=== PATIENT | male | born 1975 | race Caucasian/White ===

== ENCOUNTER 2024-07-13 16:34 | Emergency (ER) | payer OTHER, SELFPAY ==
[2024-07-13 16:40] VITALS: BP 151/104; PULSE 84; RESP 16; TEMP 36.8; O2SAT 98
--- NOTE | 2024-07-13 18:01 | ED.EAR ---
HPI - Ear Problem General Chief complaint: Ear Stated complaint: ear pain Time Seen by Provider: 07/13/24 17:10 Source: patient, RN notes reviewed and old records reviewed Mode of arrival: ambulatory Limitations: no limitations History of Present Illness HPI Narrative: 49 year old male presents to [facility] care with complaints of left ear pain intermittently for the past 2 weeks with increased intensity since last night.Patient reports that it feel like he has fluid in his ear.He states that he has tried putting some peroxide in his ear. Patient denies any sinus congestion or drainage or any cough or sore throat reports no known fevers. MD Complaint: ear pain and other (feels like fluid in the left ear) Location: left ear Duration: intermittent (now constant since yesterday) Severity: severe Discharge from ear: Reports no Treatment prior to arrival: other (peroxide to ear) Related Data Allergies Allergy/AdvReac Type Severity Reaction Status Date / Time No Known Allergies Allergy Verified 07/13/24 16:43 Review of Systems Review of Systems: CONSTITUTIONAL: Denies malaise, chills, sweats, or fever. EYES: Denies visual changes, redness, or discharge. ENT: Reports rhinorrhea, congestion, sinus pain,left otalgia and no sore throat. CARDIOVASCULAR: Denies chest pain, palpitations, or edema. RESPIRATORY: Reports no cough.? Denies dyspnea. GASTROINTESTINAL: Denies abdominal pain, nausea, vomiting, diarrhea SKIN: Denies rash or itching. MUSCULOSKELETAL: Denies myalgia. NEUROLOGIC: Denies headache. All systems reviewed & are unremarkable except as noted in HPI and below PMFSH Past Medical History Medical History (Updated 07/15/24 @ 14:21 by Kenia Gerard NP) No pertinent past medical history Surgical History Surgical History (Updated 07/15/24 @ 14:22 by Kenia Gerard NP) No pertinent past surgical history Social History Social History (Updated 07/15/24 @ 14:21 by Kenia Gerard NP) Smoking status: Unknown if ever smoked Alcohol intake: current Alcohol use details: social Substance use type: does not use Comments At time of signature, agree with nursing past medical, surgical, social and family history. There is no relevant family history pertinent to the presenting complaint Exam Narrative: GENERAL: Well-appearing, well-nourished, and in no acute distress. HEAD: Normocephalic EYES: PERRLA, conjunctivae clear ENT: Nares clear, turbinates edematous and erythematous, clear discharge. Mucous membranes moist.Left TM red and bulging,canal is red irritated and with some noted swelling no drainage noted. Right TM pearly bedolla with dull light reflex; left tragal tenderness. Oropharynx erythematous without lesions. Tonsils not enlarged and without exudate, no drooling, no hoarseness, no trismus, uvula midline. NECK: Supple. No lymphadenopathy CHEST: Clear to auscultation, breath sounds equal. No wheezing, rhonchi, rales, or stridor. No respiratory distress, speaks in full sentences.no cough SAO2 98% on room air HEART: Regular rate and rhythm. No murmur heard. SKIN: Warm, dry, no rash. NEURO: Alert and oriented x3. PSYCH: Normal mood and affect Course Course Emergency Course: Patient is aware of diagnosis, understands and agrees to treatment plan.? Anticipatory guidance given.? Patient agrees to follow-up as directed and is aware of reasons to seek care at the emergency department. Portions of this record may have been created with voice recognition software Level of Care: Express Care Visit Vital Signs Vital signs: Vital Signs Temperature 36.8 C 07/13/24 16:40 Pulse Rate 84 07/13/24 16:40 Respiratory Rate 16 07/13/24 16:40 Blood Pressure 151/104 H 07/13/24 16:40 Pulse Oximetry 98 07/13/24 16:40 Oxygen Delivery Room Air 07/13/24 16:40 Temperature 36.8 C 07/13/24 16:40 Pulse Rate 84 07/13/24 16:40 Respiratory Rate 16
== END 2024-07-13 18:12 | disposition home or self-care (01) ==
PROVIDERS: Emergency Provider Registered Nurse; PCP Internal Medicine Geriatric Medicine
DX: H66.92 Otitis media, unspecified, left ear (principal); H60.92 Unspecified otitis externa, left ear
CPT/HCPCS: 99203; G0463

== ENCOUNTER 2025-06-24 08:57 | Emergency (ER) | payer OTHER, SELFPAY ==
--- OUTSIDE RECORDS SUMMARY | 2025-06-24 09:00 | XMS_ITS | Clinical Summary ---
Author Organization [facility] Address On license of [facility] [place] [address] Care Team Providers Care Set Illustrator Name Role Phone Unavailable Primary Care Provider Unavailabl e Social History Tobacco Use Types Packs/Day Years Used Date Smoking Tobacco: Never Assessed Sex and Gender Information Value Date Recorded Sex Assigned at Not on file Legal Sex Male 8:33 PM CDT Gender Identity Not on file Sexual Orientation Not on file Plan of Treatment Health Maintenance Due Date Last Done Comments Colorectal Cancer Screening Colonoscopy (10 Years) 1974 Annual Physical 1977 Hepatitis C 1992 Hepatitis B Vaccines (1 of 3 - 19+ 3-dose series) 1993 Pneumococcal Vaccine: 50+ Years (1 of 1 - PCV) 2024 Zoster Vaccines (1 of 2) 2024 COVID-19 Vaccine (2 - 2023-2 5 season) 2024 02/05/2021 DTaP, Tdap and Td Vaccines ( 3 - Td or Tdap) 09/26/2030 09/26/2020, 2010 Meningococcal B Vaccine Aged Out No l onger eligible based on patient's age to complete this topic Meningococcal Vaccine Aged Out No torsten sheela eligible based on patient's age to complete this topic RSV Immunizations Under 20 Months Aged Out No longer eligible b ased on patient's age to complete this topic
--- OUTSIDE RECORDS SUMMARY | 2025-06-24 09:00 | XMS_ITS | Clinical Summary ---
Author Organization [facility] [address] Address [address] [place] [address] Phone Care Team Providers Care Clean Up Person Name Role Phone Terri Paiz MD Primary Care Provider [phone] Elan Prado DO Unavailable [phone] Allergies No known active allergies Medications FLUoxetine (PROzac) 20 mg capsuleIndicati ons:Irritabilit y and anger Take 1 capsule (20 mg total) by mouth daily 90 capsule 3 01/18/2025 Active Active Problems Problem Noted Date Diagnosed Date History of adenomatous polyp of colon 01/18/2025 Overview (01/18/2025): Single tubular adenoma January 19, 2025 Dr. Lennon rechecked 3-5 years Encounter for screening colonoscopy 10/05/2024 Cervicalgia 02/19/2023 Assessment & Plan (08/13/2023 4:30 PM CDT): Aching/spasms to neck/L shoulder, see HPI for details. Assessment and spasms as noted above. Educated that muscle spasms can cause radiculopathy symptoms. GIven 80mg kenalog IM in office today. Refilled Meloxicam and tizanidine as instructed. Discussed importance of rest to let muscle properly heal. Encouraged block therapy and massage. Heat/ice as tolerated. Assessment & Plan (03/30/2023 4:11 PM CDT): Neck pain improved with Meloxicam/Tizanidine. He quit taking meds as soon as he felt better and now symptoms are intermittently coming back. Assessment and spasms as noted above. Educated that muscle spasms can cause radiculopathy symptoms. Patient refuses PT at this time. Discussed importance of rest to let muscle properly heal. Encouraged block therapy and massage. Heat/ice as tolerated. Continue Meloxicam and tizanidine as needed. If symptoms persist more than another 2 weeks, will need to go to PT and get XR. Assessment & Plan (02/19/2023 2:48 PM CDT): Dull aching with intermittent shooting down left arm for 1 month. OTC measures and chiropractor provide minimal relief. Mild tenderness and pain with flexion on exam. Likely inflammatory/muscular in nature. Given 40mg kenalog IM in office today. Rxd meloxicam and tizanidine as directed. Continue heat as needed. REFER to PT for further assessment. Follow in 6 weeks, sooner if needed. Dorsalgia 02/19/2023 Assessment & Plan (02/19/2023 2:48 PM CDT): Dull aching with intermittent shooting down left arm for 1 month. OTC measures and chiropractor provide minimal relief. Mild tenderness and pain with flexion on exam. Likely inflammatory/muscular in nature. Given 40mg kenalog IM in office today. Rxd meloxicam and tizanidine as directed. Continue heat as needed. REFER to PT for further assessment. Follow in 6 weeks, sooner if needed. Cervical radiculopathy 02/19/2023 Assessment & Plan (02/19/2023 2:48 PM CDT): Dull aching with intermittent shooting down left arm for 1 month. OTC measures and chiropractor provide minimal relief. Mild tenderness and pain with flexion on exam. Likely inflammatory/muscular in nature. Given 40mg kenalog IM in office today. Rxd meloxicam and tizanidine as directed. Continue heat as needed. REFER to PT for further assessment. Follow in 6 weeks, sooner if needed. Irritability and anger 08/11/2017 Assessment & Plan (08/13/2023 4:28 PM CDT): Mood swings improved with re-starting Fluoxetine 20mg daily. Comfortable on current dose, will refill in office today. Assessment & Plan (03/30/2023 4:06 PM CDT): Mood swings improved with re-starting Fluoxetine 20mg daily. Comfortable on current dose, will refill in office today. Assessment & Plan (12/08/2019 4:48 PM [employer]): Mood has been well controlled with Zoloft. He will continue present dose. Resolved Problems Problem Noted Date Diagnosed Date Resolved Date Postprandial abdominal bloating 12/08/2019 07/01/2022 Assessment & Plan (12/08/2019 4:54 PM [employer]): Most likely secondary to large food consumption. Patient reports this usually happens after lunch which is his largest meal of the day. Today he had pizza and developed bloating. He denies any belching or reflux symptoms. He was encouraged to avoid large meals and to avoid lying flat after eating. He was also instructed to avoid carbonated beverages.He was also encouraged to avoid foods that are known irritants to him. Reflux symptoms were discussed with him as well and for now he will monitor. 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 Discussed with patient that poor blood pressure control can lead to heart attack and stroke. Currently at this visit his BP is stable. He was instructed to monitor his BP for the next two weeks at home and call us with readings. The goal for this patient is SBP<140 and DBP <90. If BP elevated we will need to resume his lisinopril/hctz Immunizations Immunization Administration Dates Next Due Influenza, Quadrivalent, Aster l Culture-based MDCK, Preservative Free, Antibiotic Free, Intramuscular 09/23/2022 Influenza, Quadrivalent, Spl it, Intramuscular 09/27/2019,12/08/2016 Influenza, Quadrivalent, Spl it, Preservative Free, Intramuscular 01/06/2024,09/26/2020,09/27/2019,10/10 Influenza, Trivalent, Cell Culture-based MDCK, Preservative Free, Antibiotic Free, Intramuscular 12/26/2024 Influenza, Trivalent, IM (MDV) 10/22/2015,2013,12/19/2013 Influenza, Trivalent, Preser vative Free, Intramuscular 11/05/2017 Kelly (J&J) SARS-CoV-2 Vaccination 02/05/2021 MMR 06/06/2015 Tdap 09/26/2020,2010 Surgical History Surgery Date Site/Laterality Comments COLONOSCOPY 01/16/2025 (+) Dr. 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 2-3 times a week 01/16/2025 Q2: How many drinks containi ng alcohol do you have on a typical day when you are drinking? 1 or 2 01/16/2025 Q3: How often do you have si x or more drinks on one occasion? Weekly 01/16/2025 PHQ-2 Answer Date Recorded PHQ-2 Total Score (If total score is 3 or more points, staff should administer the PHQ-9) 0 01/18/2025 Personal Safety Answer Date Recorded Have you ever been in or are you currently in a harmful physical or emotional relationship or is someone making you feel afraid or unsafe? 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 on file Not on file Not on file Obstetrics History Last Filed Vital Signs Vital Sign Reading Time Taken Comments Blood Pressure 138/80 01/18/2025 11:02 AM [employer] Pulse 66 01/18/2025 11:02 AM [employer] Temperature 36.2 C (97.1 F) 01/18/2025 9:16 AM [employer] Respiratory Rate 18 01/18/2025 9:16 AM [employer] Oxygen Saturation 98% 01/18/2025 9:16 AM [employer] Inhaled Oxygen Concentration - - Weight 82 kg (180 lb 12.8 oz) 01/18/2025 9:16 AM [employer] Height 177.8 cm (5' 10) 01/18/2025 9:16 AM [employer] Body Mass Index 25.94 01/18/2025 9:16 AM [employer] Plan of Treatment Health Maintenance Due Date Last Done Comments Hepatitis B Screening 1992 Zoster Vaccine (1 of 2) 2024 Covid-19 Vaccine ( - season) 2024 11/09/2021, 02/05/2021 Influenza Vaccine (#1) 2025 , 01/06/2024, 09/23/2022, Additional history exists Prostate Cancer Screening-PSA 12/23/2025 12/23/2023 Depression Screening 01/18/2026 01/18/2025, 01/06/2024, 07/01/2022, Additional history exists Regular Well Visit/Exam 18-64 01/18/2026 01/18/2025, 01/06/2024, 07/01/2022, Additional history exists DTaP/Tdap/Td Vaccine (3 - Td or Tdap) 09/26/2030 09/26/2020, 2010 Colon Cancer Screening-Colonoscopy 01/16/2035 01/16/2025 Hepatitis C Screening Completed 10/18/2015 Pneumococcal vaccine <65 Aged Out No longer eligible based on patient's age to complete this topic Procedures Procedure Name Priority Date/Time Associated Diagnosis Comments COLONOSCOPY 01/16/2025 10:24 AM [employer] [facility] PSA SCREEN Routine 12/23/2023 3:34 PM [employer] [facility] Screening PSA (prostate specific antigen) HEPATITIS C ANTIBODY Routine 10/18/2015 8:50 AM S[employer] C[employer] from Last 3 Months or Most Recently Relevant to Health Maintenance Results * Colonoscopy (01/16/2025 10:24 AM [employer]) Anatomical Region Laterality Modality Other Narrative Procedure Note Elan Prado DO - 01/16/2025 10:[address] [facility] Patient Name: Reza Hensley Procedure Date: 01/16/2025 10:24 AM Date of : 1975 Admit Type: Outpatient Age: 49 Gender: Male Attending MD: Elan Prado D.O. Room: [facility] ENDOSCOPY ROOM 2 Note Status: Finalized Patient Profile: Refer to note in patient chart for documentation of history and physical. Procedure: Colonoscopy Indications: Screening for colorectal malignant neoplasm, Thisis the patient's first colonoscopy Referring MD: Terri Paiz M.D. Providers: Elan Prado D.O. Impression: - The examined portion of the ileum was normal. - One 2 mm polyp in the cecum, removed with a jumbo cold forceps. Resected and retrieved. - Diverticulosis in the sigmoid colon. Recommendation: - Discharge patient to home. - Resume previous diet. - Continue present medications. - Await pathology results. - Repeat colonoscopy in 5 years for surveillancebased on pathology results. - Return to primary care physician PRN. Medicines: Monitored Anesthesia Care Complications: No immediate complications. Estimated Blood Loss: Estimated blood loss was minimal. Procedure: Pre-Anesthesia Assessment: - As per anesthesia. The benefits, risks and alternatives of theprocedure and sedation were discussed and informed consentwas obtained. All questions were answered. Please referto the signed informed consent document in the medical record. The bowel preparation used was Miralax via split dose instruction. The bowel preparation usedwas bisacodyl tablets via split dose instruction. The scope was passed under direct vision. The Pediatric Colonoscope [id number]-H190L [id number] was introducedthrough the anus and advanced to the 3 cm into the ileum.The colonoscopy was performed without difficulty. The patient tolerated the procedure well. The qualityof the bowel preparation was adequate. The terminal ileum, ileocecal valve, appendiceal orifice, and rectum were photographed. Findings: The perianal and digital rectal examinations were normal. The terminal ileum appeared normal. A 2 mm polyp was found in the cecum. The polyp was removed with ajumbo cold forceps. Resection and retrieval were complete. A single diverticulum was found in the sigmoid colon. No additional abnormalities were found on retroflexion. Electronically signed by Elan Prado M.D. Elan Prado D.O. 01/16/2025 12:24:47 PM Number of Addenda: 0 Note Initiated On: 01/16/2025 10:24 AM Procedure Code(s): --- Professional --- 56227, Colonoscopy, flexible; with biopsy, single or multiple --- Technical --- 10475, Colonoscopy, flexible; with biopsy, single or multiple Diagnosis Code(s): --- Professional --- Z12.11, Encounter for screening for malignant neoplasm of colon D12.0, Benign neoplasm of cecum K57.30, Diverticulosis of large intestine without perforation orabscess without bleeding --- Technical --- Z12.11, Encounter for screening for malignant neoplasm of colon D12.0, Benign neoplasm of cecum K57.30, Diverticulosis of large intestine without perforation orabscess without bleeding CPT copyright 2020 [employer]. All rights reserved. The codes documented in this report are preliminary and upon manpower development manager reviewmay be revised to meet current compliance requirements. Recognized by the [employer] for promoting quality in endoscopy Elan Prado DO ENDOSCOPY PROCEDURES Final Res ult * PSA screen (12/23/2023 3:34 PM [employer]) Pathologist [facility] PSA-Total 0.40 ng/mL [facility] Comment: Interpretive Data AGE SEX REFERENCE INTERVAL 0 minutes-150 years Female None 0 minutes-49 years Male None 50-59 years Male 0-3.90 60-69 years Male 0-5.40 70-79 years Male 0-6.20 80-150 years Male 0-6.20 The Chloe PSA Total assay procedure was used. Results from different manufacturers or methods may not be comparable. Serial testing should be performed using the same method. Current interpretive data last revised 22. Testing performed by: [facility], [address] [place] [address]., [id number] Blood 12/23/2023 3:34 PM [employer] [facility] 12/23/2023 6:27 PM [employer] Terri Paiz MD LAB BLOOD ORDERABLES Final Result [facility]) 1 [facility] Department [place] [address] * Hepatitis C antibody (10/18/2015 8:50 AM [employer]) Pathologist [facility] SIGNAL TO CUT-OFF 0.04 <1.00 [facility] Comment: Test performed at [facility] [place] [address] [place] [address] Director: HARLAN SAINZ DO,MPH Hep C Ab NON-REACT JOSE DAVID NON-REACT JOSE DAVID [facility]ORICAL RESULTS 10/18/2015 8:50 AM [facility] us Terri Paiz MD LAB MICROBIOLOGY - GENERAL ORDERABLES Final Result [facility]ISTORICAL RESULTS from Last 3 Months or Most Recently Relevant to Health Maintenance Insurance [employer] OPEN ACCESS [employer] OPEN ACCESS Member Subscriber Plan / Payer (Ef fective 2002-Present) Name:Reza Hensley Relation to Subscriber:Self Name:Reza Hensley Payer ID:[id number] Group ID:[id number] Type:[employer] HMO/PPO [address] [place] [place] [address] CIG Advance Directives For more information, please contact: [phone] Documents on File Type Date Recorded Patient Rug Weaver Expl anation ADVANCE DIRECTIVE 05/07/2015 POWER OF A [employer] * Full Code (Latest Code Status on File) Date Activated Date Inactivated Comments 01/16/2025 10:14 AM 01/16/2025 5:36 PM * Full Code Date Activated Date Inactivated Comments 01/16/2025 10:14 AM 01/16/2025 10:14 AM Care Teams Clean Up Person Relationship Specialty Start Date End Date Terri Paiz MD PCP - General 12/08/16 Elan Prado DO [address] [place] [address] [place] [address] Consulting Physician Gastroenterology 01/18/25
--- OUTSIDE RECORDS SUMMARY | 2025-06-24 09:00 | XMS_ITS | Clinical Summary ---
Author Organization [facility] Address [address] [place] [address] Phone Care Team Providers Care Asp Net Programmer Name Role Phone Provider, Unknown Primary Care Provider Unavaila ble Medications No known medications Active Problems No known active problems Social History Tobacco Use Types Packs/Day Years Used Date Smoking Tobacco: Never Assessed Sex and Gender Information Value Date Recorded Sex Assigned at Not on file Legal Sex Male 12:38 AM CDT Gender Identity Not on file Sexual Orientation Not on file Plan of Treatment Health Maintenance Due Date Last Done Comments Hepatitis C Virus (HCV) Screening 1975 TdaP Immunization 1974 Hepatitis B Immunization (1 of 3 - 19+ 3-dose series) 1993 Cologuard 2019 Colonoscopy 2019 Colorectal Cancer Screening 2019 Immunochemical Fecal Occult Blood 2019 Pneumococcal Immunization (50+ years) (1 of 1 - PCV) 2024 Zoster Immunization (1 of 2) 2024 SARS-COV-2 Immunization (3 - 2023- season) 2024 11/09/2021, 02/05/2021 Influenza Immunization (#1) 07/31/202508/31, 10/10/2018, 11/05/2017, Additional history exists Respiratory Syncytial Virus (RSV) Immunization (Adult) (1 - 1-dose 75+ series) 2049 Human Papillomavirus (HPV) Immunization Aged Out No longer eligible based on patient's age to complete this topic Meningococcal Immunization (ACWY) Aged Out No longer eligible based on patient's age to complete this topic Rotavirus Immunization Aged Out No lo nger eligible based on patient's age to complete this topic Care Teams Asp Net Programmer Relationship Specialty Start Date End Date Provider, Unknown UNKNOWN PCP - General 06/22/20
--- OUTSIDE RECORDS SUMMARY | 2025-06-24 09:00 | XMS_ITS | Referral Summary ---
Author Organization [facility] [address] Address [address] [place] [address] Phone Care Team Providers Care Soil Field Technician Name Role Phone Terri Paiz MD Primary Care Provider [phone] Elan Prado DO Unavailable [phone] Allergies No known active allergies Medications [...] today. Assessment & Plan (12/08/2019 4:48 PM CONTRACTING SUPPORT SPECIALIST): Mood has been well controlled with Zoloft. He will continue present dose. Resolved Problems Problem Noted Date Diagnosed Date Resolved Date Postprandial abdominal bloating 12/08/2019 07/01/2022 Assessment & Plan (12/08/2019 4:54 PM CONTRACTING SUPPORT SPECIALIST): Most likely secondary to large food consumption. 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 Not on file Not on file Not on file Last Filed Vital Signs Vital Sign Reading Time Taken Comments Blood Pressure 138/80 01/18/2025 11:02 AM CONTRACTING SUPPORT SPECIALIST Pulse 66 01/18/2025 11:02 AM CONTRACTING SUPPORT SPECIALIST Temperature 36.2 C (97.1 F) 01/18/2025 9:16 AM CONTRACTING SUPPORT SPECIALIST Respiratory Rate 18 01/18/2025 9:16 AM CONTRACTING SUPPORT SPECIALIST Oxygen Saturation 98% 01/18/2025 9:16 AM CONTRACTING SUPPORT SPECIALIST Inhaled Oxygen Concentration - - Weight 82 kg (180 lb 12.8 oz) 01/18/2025 9:16 AM CONTRACTING SUPPORT SPECIALIST Height 177.8 cm (5' 10) 01/18/2025 9:16 AM CONTRACTING SUPPORT SPECIALIST Body Mass Index 25.94 01/18/2025 9:16 AM CONTRACTING SUPPORT SPECIALIST Plan of Treatment Not on file Procedures Procedure Name Priority Date/Time Associated Diagnosis Comments COLONOSCOPY 01/16/2025 10:24 AM CONTRACTING SUPPORT SPECIALIST PSA SCREEN Routine 12/23/2023 3:34 PM CONTRACTING SUPPORT SPECIALIST Screening PSA (prostate specific antigen) HEPATITIS C ANTIBODY Routine 10/18/2015 8:50 AM CONTRACTING SUPPORT SPECIALIST from Last 3 Months or Most Recently Relevant to Health Maintenance Results * Colonoscopy (01/16/2025 10:24 AM CONTRACTING SUPPORT SPECIALIST) Anatomical Region Laterality Modality Other Narrative Procedure Note Elan Prado, DO - 01/16/2025 10:24 AM CST [facility] Patient Name: Reza Hensley Procedure Date: 01/16/2025 10:24 AM Date of : 1975 Admit Type: Outpatient Age: 49 Gender: Male Attending MD: Elan Prado D.O. Room: [facility] ENDOSCOPY ROOM 2 Note Status: Finalized [...] under direct vision. The Pediatric Colonoscope PCF-H190L [id number] was introducedthrough the anus and advanced to [...] Electronically signed by Elan Prado M.D. Elan Prado, D.O. 01/16/2025 12:24:47 PM Number of Addenda: 0 Note Initiated On: 01/16/2025 10:24 AM Procedure Code(s): --- Professional --- 71555, Colonoscopy, flexible; with biopsy, single or multiple --- Technical --- 45400, Colonoscopy, flexible; with biopsy, single or multiple [...] perforation orabscess without bleeding CPT copyright 2020 [employer]. All rights reserved. The codes documented in this report are preliminary and upon glass vial bending conveyor feeder reviewmay be revised to meet current compliance requirements. Recognized by the [employer] for promoting quality in endoscopy Elan Prado DO ENDOSCOPY PROCEDURES Final Res ult * PSA screen (12/23/2023 3:34 PM CONTRACTING SUPPORT SPECIALIST) PSA-Total 0.40 ng/mL [facility] ([facility]) Comment: Interpretive Data AGE SEX REFERENCE INTERVAL [...] data last revised 22. Testing performed by: [facility], [address] [place] [address], [place]., [address] Blood 12/23/2023 3:34 PM CONTRACTING SUPPORT SPECIALIST 12/23/2023 6:27 PM CONTRACTING SUPPORT SPECIALIST Terri Paiz MD LAB BLOOD ORDERABLES Final Result [facility] ([place]) [address] [facility] [place] [address] * Hepatitis C antibody (10/18/2015 8:50 AM CONTRACTING SUPPORT SPECIALIST) [facility] SIGNAL TO CUT-OFF 0.04 <1.00 [facility] Comment: Test performed at [facility] [address] [place] [address] Director: HARLAN SAINZ DO,MPH Hep C Ab NON-REACT JOSE DAVID NON-REACT JOSE DAVID [facility] RES[facility] 10/18/2015 8:50 AM CONTRACTING SUPPORT SPECIALIST Terri Paiz MD LAB MICROBIOLOGY - GENERAL ORDERABLES Final Result [facility] RESULTS from Last 3 Months or Most Recently Relevant to Health Maintenance Insurance [employer] OPEN ACCESS [employer] OPEN ACCESS [facility] Advance Directives For more information, please contact: [phone] Documents on File Type Date Recorded 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
--- OUTSIDE RECORDS SUMMARY | 2025-06-24 09:00 | XMS_ITS | Continuity of Care Document ---
Author Organization [employer] [place] Address [address] [place] [address] Phone Care Team Providers Care Manager Motor Name Role Phone No Information Unavailable Unavailable Advance Directives Directive Yes / No Effective Date File Name No Information Encounters Encounter Description Practice Location Reason(s) For Visit Diagnoses Date Provider Providers Copied on Encounter [facility], [address] [place], [place] [address], [place], [place], [id number], [place] tel:[phone] No Information No Information Family History Family Member Type Diagnosis Age At Onset No Information Payers Payer name Insurance type Covered libertarian ID Authoriza tion(s) No Information Social History Type Description Quantity Date Captured Comments Sex Male Smoking Status No Information Chief Complaint And Reason For Visit No Information Reason For Referral Reason For Referral No Information History Of Present Illness Encounter Date Complaint History Of Prese nt Illness No Information Functional Status Date Functional Assessmen t No Information Instructions Date Instruction Additional Infor mation No Information Assessments Type Assessment Date No Information Patient Care Teams Name Effective Dates (start - stop) Status Members No Information
--- OUTSIDE RECORDS SUMMARY | 2025-06-24 09:01 | XMS_ITS | Continuity of Care Document ---
Author Organization [employer] [place] Address [address] [place] [address] Phone Care Team Providers Care Senior Hardware Engineer Name Role Phone No Information Unavailable Unavailable Advance Directives Directive Yes / No Effective Date File Name No Information Encounters Encounter Description Practice Location Reason(s) For Visit Diagnoses Date Provider Providers Copied on Encounter [facility], [address] [place], [place] [address], [place], [place], [id number], [place] tel:[phone] No Information No Information Family History Family Member Type Diagnosis Age At Onset No Information Payers Payer name Insurance type Covered alliance party ID Authoriza tion(s) No Information Social History [...]
[2025-06-24 09:02] VITALS: BP 148/101; PULSE 74; RESP 20; TEMP 36.7; O2SAT 99
--- NOTE | 2025-06-24 09:24 | ED_ITS ---
HPI - Ear Problem General Chief complaint: Ear Stated complaint: Ear pain Patient presents to [facility] with complaints of left ear pain that began last night. Woke up this morning and it was significantly worse. Patient noted he has [place] for the last [place]. no medication remedies attempted for symptoms. Denies cold symptoms, headache, dizziness, fever, chills, body aches. Related Data Home Medications ?Medication ?Instructions ?Recorded ?Confirmed ?Last Taken ?Type fluoxetine 20 mg capsule mg 06/24/25 Unknown History Allergies Allergy/AdvReac Type Severity Reaction Status Date / Time No Known Allergies Allergy Verified 06/24/25 09:15 Review of Systems Constitutional: Constitutional: Reports as per HPI, Denies chills, Denies fatigue, Denies fever(s) and Denies weakness Eyes: Eyes: Reports no additional eye complaints ENT: Reports as per HPI, Denies vertigo, Denies dizziness, Denies epistaxis, Denies nasal congestion and Denies sore throat Comments: left ear pain Cardiovascular: Cardiovascular: Reports no additional cardiovascular complaints Respiratory: Respiratory: Reports no additional respiratory complaints Gastrointestinal: Gastrointestinal: Reports no additional gastrointestinal complaints Genitourinary: Genitourinary: Reports no additional male genitourinary complaints Musculoskeletal: Musculoskeletal: Reports no additional musculoskeletal complaints Integumentary/Breasts: Skin/Breast: Reports as per HPI, Denies erythema and Denies rash Neurologic: Reports as per HPI and Denies headache(s) Psychiatric: Psychiatric: Reports no additional psychiatric complaints Endocrine: Endocrine: Reports no additional endocrine complaints Hematologic/Lymphatic: Hematologic/Lymphatic: Reports no additional hematologic/lymphatic complaints Allergic/Immunologic: Allergic/Immunologic: Reports no additional allergic/immunologic complaints [facility] Past Medical History Medical History (Updated 06/24/25 @ 09:29 by CANELO Ricks) No pertinent past medical history Surgical History Surgical History (Updated 07/15/24 @ 14:22 by Kenia Gerard NP) No pertinent past surgical history Social History Social History (Updated 07/15/24 @ 14:21 by Kenia Gerard NP) Smoking status: Unknown if ever smoked Alcohol intake: current Alcohol use details: social Substance use type: does not use Exam Const: General: healthy appearing and no acute distress Nutritional Appearance: well nourished Orientation/consciousness: patient oriented x3 Limitations: no limitations HENMT: Head: normal to inspection Ears: external ears abnormal, TM's abnormal bilaterally and TM abnormal Face/Nose/Sinus: Normal external nose present Face and sinus: normal facial exam Mouth: Yes Normal oral and palatal mucosa present Teeth and gingiva: dentition normal Throat: posterior oropharynx normal Other: Left ear painful with movement, mild swelling to tragus. Left canal diffuse erythema and edema. TM left bulging, erythema is cloudy fluid noted behind TM Neck: Neck: no lymphadenopathy Resp: Effort & Inspection: normal respiratory effort Auscultation: clear to auscultation bilaterally Cardio: Rate: regular rate Rhythm: regular rhythm Skin: General skin exam: normal color Rashes: no rashes Wounds: no wounds Neuro: General: patient oriented x3 Speech: normal speech Gait exam (Neuro): Normal gait present Psych: Mental Status: mental status grossly normal Affect: normal affect Attitude: cooperative Course Course Level of Care: Express Care Visit Vital Signs Vital signs: Vital Signs Temperature 98.0 F 06/24/25 09:02 Pulse Rate 74 06/24/25 09:02 Respiratory Rate 20 06/24/25 09:02 Blood Pressure 148/101 H 06/24/25 09:02 Pulse Oximetry 99 06/24/25 09:02 Oxygen Delivery Room Air 06/24/25 09:02 Temperature 98.0 F 06/24/25 09:02 Pulse Rate 74 06/24/25 09:02 Respiratory Rate 20 06/24/25 09:02 Blood Pressure 148/101 H 06/24/25 09:02 Pulse Oximetry 99 06/24/25 09:02 Oxygen Delivery Room Air 06/24/25 09:02 Medical Decision Making [facility] Narrative Medical decision making narrative: Discharge instructions reviewed with patient, as well as provided in writing per nursing staff. The instructions also include specific and strict return/GO TO THE ER as well as f/u information. All questions have been answered, and the patient deny any further questions with discharge and discharge plan. Differential Diagnosis Differential Diagnosis: AOM, otitis externa, sinusitis Medical Records Medical records reviewed: Yes I reviewed the external patient's medical records. Vital Signs Vital Signs: Vital Signs Temperature 98.0 F 06/24/25 09:02 Pulse Rate 74 06/24/25 09:02 Respiratory Rate 20 06/24/25 09:02 Blood Pressure 148/101 H 06/24/25 09:02 Pulse Oximetry 99 06/24/25 09:02 Oxygen Delivery Room Air 06/24/25 09:02 Temperature 98.0 F 06/24/25 09:02 Pulse Rate 74 06/24/25 09:02 Respiratory Rate 20 06/24/25 09:02 Blood Pressure 148/101 H 06/24/25 09:02 Pulse Oximetry 99 06/24/25 09:02 Oxygen Delivery Room Air 06/24/25 09:02 Discharge Plan Discharge Clinical Impression: Otitis externa Qualifiers: Otitis externa type: swimmer's ear Laterality: left Otitis media Qualifiers: Laterality: left Patient Disposition: Home Condition: Stable Instructions: Antibiotic Form, Swimmer's Ear (AC), Ear Infection (ED) Additional Instructions: -Ear drops as directed for 7-10 days until the pain and swelling are gone. -When administer drug into the affected ear; make sure to ly down with the affected ear facing upward, message the ear canal to help the drops reach the medial end of the canal, then remain in that position for at least 5 mintues. -Avoid using cotton tipped applicator for ears cleaning -Avoid exposing swimming or exposing the affected ear to water during the treatment period Take or alternate tylenol or ibuprofen every 4 - 6 hours if needed for pain. Follow up with primary care provider if condition is not improving in 7 days or sooner if there is new concern. Patient Language: Ethiopian Prescriptions: New ciprofloxacin-dexamethasone 0.3-0.1 % drops,suspension 4 drp LEFT EAR Q12H 7 Days Qty: 7.5 0RF azithromycin 250 mg tablet See Rx Instructions .ROUTE .COMPLEX Qty: 6 0RF Rx Instructions: For 250 mg dose pack: take 500 mg today (day 1), then 250 mg for 4 days (days 2-5) No Action fluoxetine 20 mg capsule methylprednisolone [Medrol (Sung)] 4 mg tablets,dose pack See Rx Instructions .ROUTE .COMPLEX Qty: 21 0RF Rx Instructions: orally per package directions amoxicillin-pot clavulanate 875-125 mg tablet 1 tablet PO Q12H Qty: 20 0RF ofloxacin 0.3 % drops 5 drp LEFT EAR BID 10 Days Qty: 10 0RF Follow-up/Referrals: Chencho,MD Terri [Primary Care Provider] - Time of Disposition: 09:29
== END 2025-06-24 09:33 | disposition home or self-care (01) ==
PROVIDERS: Emergency Provider Nurse Practitioner Family; PCP Internal Medicine Geriatric Medicine
DX: H60.92 Unspecified otitis externa, left ear (principal); H66.92 Otitis media, unspecified, left ear
CPT/HCPCS: 99213; G0463